=== PATIENT | male | born 1955 | race Caucasian/White ===

== ENCOUNTER → 2017-07-06 | Outpatient (REF) | payer MEDICARE, OTHER ==
[2017-07-07 00:30] LABS: INFLUENZA A AMPLIFICATION POSITIVE (NEGATIVE); INFLUENZA B AMPLIFICATION NEGATIVE (NEGATIVE); RSV AMPLIFICATION NEGATIVE (NEGATIVE)
== END ==
LOC: M LAB REF 22:46
DX: J11.1 Influenza due to unidentified influenza virus with other respiratory manifestations (principal)
CPT/HCPCS: 87631

== ENCOUNTER 2020-09-22 17:43 | Day surgery (SDC) | payer MEDICARE, OTHER ==
[~2020-09-22] VITALS: Ht 175.3 cm; Wt 131.4 kg
[~2020-09-22 17:43] MED LIST: ELIQ5TAB PO; EXTR500C4 PO; LYRI75CA PO; METO1TAB63 PO; METO50TA7 PO; METOPROLOL PO; PERC5TAB12 PO; QC A650T3 PO; TIKO500C PO; TYLE325T5 PO; VITA500C14 PO; VYTO10TA22 PO; ZETI10TA16 PO; ZOCO20TA PO
[2020-09-22] MEDS ORDERED: GLUCAGON INJ 1MG VIAL IV STA ×2 (19:05→20:00)
[2020-09-22] MEDS ORDERED: VYTO10TA22 PO (21:00)
[2020-09-22] MEDS ORDERED: ROCURONIUM BROMIDE 50 MG/5 ML VIAL As Ordered ONE (21:01)
[2020-09-22] MEDS ORDERED: propofoL 200 MG/20 ML VIAL As Ordered ONE (21:01)
[2020-09-22] MEDS ORDERED: LIDOCAINE 2% 100MG/5ML SDV (FOR ANES.) As Ordered ONE (21:01)
[2020-09-22] MEDS ORDERED: MIDAZOLAM INJ 2MG/2ML VIAL (J2250 PER 1MG) As Ordered ONE (21:02)
[2020-09-22] MEDS ORDERED: fentaNYL 100 MCG/2 ML INJECTION (J3010) As Ordered ONE (21:02)
[2020-09-22 21:41] LABS: RSV AMPLIFICATION NEGATIVE (NEGATIVE)
[2020-09-22] MEDS ORDERED: SUCCINYLCHOLINE 100 MG/5 ML SYRINGE (J0330) As Ordered ONE (22:52)
[2020-09-22 23:35] VITALS: BP 120/61
--- NOTE | 2020-09-23 08:07 | RO ---
OPERATIVE NOTE DATE OF OPERATION: 09/22/2020 PREOPERATIVE DIAGNOSIS: Esophageal food impaction. POSTOPERATIVE DIAGNOSIS: Esophageal food impaction with mild gastritis and mild distal esophagitis. PROCEDURE: EGD with removal of food bolus obstruction in the esophagus. SURGEON: Earle Yadav DO [employer] MACHINE OPERATOR: None. ANESTHESIA: General. EBL: None. COMPLICATIONS: None. INDICATIONS FOR PROCEDURE: The patient is a 64-year-old male who presents with steak stuck in his throat after this evening's meal. Recommendation was to proceed with EGD with removal of the food bolus. Risks and benefits of the procedure not limited to but including bleeding, infection, perforation of esophagus, damage to surrounding structures, need for further surgery was discussed in detail with The patient and informed consent was obtained to proceed with plan. DESCRIPTION OF PROCEDURE: The patient was brought back to operating room 3. After sufficient sedation he was placed in left lateral decubitus position. Time out was done to confirm proper patient, proper procedure. Following that the upper endoscope was passed through the oropharynx and down into the esophagus. In the distal esophagus there was a large chunk of steak identified. I was able to easily push this through the GE junction inside the stomach. Once that was completed I continued to pass the scope all the way through the pylorus into the duodenum. There was some irregularity of the wall of the duodenum. However, due to him being on blood thinners I held back from doing any biopsies at that time. The scope was then retracted back into the stomach. There was a little bit of mild irritation in the prepyloric area, no signs of any hiatal hernias. Scope was then brought back out into the esophagus; the Z-line was irregular with some mild distal esophagitis and some slight erythema in the area likely secondary to the food being stuck there. The scope was removed. The patient was awakened from anesthesia and sent to PACU in stable condition. RECOMMENDATION: Have him follow up with me in the office in two weeks. Plan for repeat upper scope once he is off blood thinners.
--- NOTE | 2020-09-23 09:23 | HPE ---
HISTORY AND PHYSICAL DATE: 09/22/2020 CHIEF COMPLAINT: Steak stuck in his esophagus. HISTORY OF PRESENT ILLNESS: Patient is a 64-year-old male that presented to the Emergency Room after getting steak stuck in his esophagus. He is having trouble swallowing. They tried a few doses of glucagon as well as some Poppy-Areli without any success and then they called me to take him to the operating room for removal. Patient denies ever having any problems swallowing in the past. No prior upper endoscopy. No problems with heartburn or reflux and no family history of upper GI problems. PAST MEDICAL HISTORY: Significant for: 1. Testicular cancer. 2. Lymphoma. 3. Afib. PAST SURGICAL HISTORY: 1. Inguinal hernia repair. 2. Orchiectomy. SOCIAL HISTORY: Denies drug, alcohol or tobacco abuse. FAMILY HISTORY: Noncontributory. ALLERGIES: Please see Med Rec. MEDICATIONS: Please see Med Rec. REVIEW OF SYSTEMS: Pertinent positives as per the HPI. PHYSICAL EXAMINATION: General: A&O times 3, in no acute distress. Vital signs stable, afebrile. HEENT: Pupils equally round and reactive to light and accommodation. Heart: S1 and S2 irregularly irregular rate and rhythm. Lungs: Clear to auscultation bilaterally. Abdomen: Soft, nontender, nondistended. Extremities: No clubbing, cyanosis or edema. LABORATORY DATA: Not obtained. IMAGING: Not obtained. ASSESSMENT AND PLAN: Patient is a 64-year-old male with esophageal food impaction. Recommendation was to proceed with urgent upper endoscopy with removal of food bolus. Risks and benefits of procedure not limited to, but including bleeding, infection, perforation of the esophagus, damage to surrounding structures, need for further surgery were discussed in detail with the patient. Informed consent was obtained and procedure was planned. Post-procedure he will likely be discharged home from the recovery room and will follow up with me in the office as an outpatient.
== END 2020-09-22 23:55 | disposition home or self-care (01) ==
LOC: M ED 17:43 → M SDC 17:44
PROVIDERS: ATTEND Surgery
DX: T18.128A Food in esophagus causing other injury, initial encounter (principal); X58.XXXA Exposure to other specified factors, initial encounter; K20.90 Esophagitis, unspecified without bleeding; K29.70 Gastritis, unspecified, without bleeding; K22.8 Other specified diseases of esophagus; I10 Essential (primary) hypertension; E78.5 Hyperlipidemia, unspecified; E66.9 Obesity, unspecified; Z68.41 Body mass index [BMI] 40.0-44.9, adult; C82.90 Follicular lymphoma, unspecified, unspecified site; I48.91 Unspecified atrial fibrillation; Z85.47 Personal history of malignant neoplasm of testis; Z88.1 Allergy status to other antibiotic agents; Z88.8 Allergy status to other drugs, medicaments and biological substances; Z79.899 Other long term (current) drug therapy; Z79.01 Long term (current) use of anticoagulants
CPT/HCPCS: 43247; 87631; 96374; 96376; 99283; J0330; J1610; J2250; J3010

== ENCOUNTER 2024-06-09 19:28 | Inpatient (IN) | payer MEDICARE, OTHER ==
[~2024-06-09 19:28] MED LIST changes: +DILT180C28 PO; +DOXY100T PO; +EZET-18 PO; +EZET10TA58 PO; +FURO40TA2 PO; +MECL-86 PO; +METO1TAB87 PO; +SIMV-253 PO; -TIKO500C PO; +TIKO500C2 PO; -VYTO10TA22 PO; -ZETI10TA16 PO; -ZOCO20TA PO
[2024-06-09 20:00] LABS: BASO # 0.1 10^3/uL (0.0-0.2); BASO % 0.6 % (0.0-1.0); EOS # 0.1 10^3/uL (0.0-0.5); EOS % 1.7 % (0.0-3.0); HEMATOCRIT 29.2 % (42.0-52.0); HEMOGLOBIN 9.7 g/dl (13.5-17.5); LYMPH # 1.5 10^3/uL (1.5-5.0); LYMPH % 18.6 % (24.0-44.0); MEAN CORPUSCULAR HEMOGLOBIN 31.3 pg (27.0-33.0); MEAN CORPUSCULAR HGB CONC 33.2 g/dl (32.0-36.5); MEAN CORPUSCULAR VOLUME 94.2 fl (80.0-96.0); MONO # 0.5 10^3/uL (0.0-0.8); MONO % 6.6 % (2.0-8.0); NEUTROPHILS # 5.9 10^3/uL (1.5-8.5); NEUTROPHILS % 72.1 % (36.0-66.0); PLATELET COUNT, AUTOMATED 213 10^3/uL (150-450); WHITE BLOOD COUNT 8.2 10^3/uL (4.0-10.0)
[2024-06-09 20:28] LABS: BILIRUBIN,DIRECT 0.5 MG/DL (<0.4); BILIRUBIN,TOTAL 0.8 MG/DL (0.3-1.2); CALCIUM LEVEL 7.9 MG/DL (8.3-10.6); CREATININE FOR GFR 1.67 MG/DL (0.70-1.30); GLOMERULAR FILTRATION RATE 43.8 (>49); MAGNESIUM LEVEL 1.6 MG/DL (1.8-2.4); PHOSPHORUS LEVEL 3.8 MG/DL (2.4-5.1); POTASSIUM SERUM 4.5 MMOL/L (3.5-5.1); TOTAL PROTEIN 4.6 G/DL (5.7-8.2)
[2024-06-09] MEDS ORDERED: ISOVUE-370 76% 100ML VIAL As Ordered ONE (20:31)
[2024-06-09] MEDS: NS (Normal Saline) 0.9% 1,000 ML in IV 1 EA IV ONE (20:40)
[2024-06-09] MEDS: PANTOPRAZOLE 40MG VIAL IV ONE (21:24)
[2024-06-09] MEDS: METOCLOPRAMIDE INJ 10MG/2ML VIAL IV ONE (21:24)
[2024-06-09] MEDS ORDERED: LevoFLOXacin IV 750 MG in IV 1 EA IV ONE (21:45)
[2024-06-09] MEDS: APIXABAN 5 MG TAB (ELIQUIS) PO ONE (22:47)
[2024-06-10] VITALS (56 sets, daily range): BP systolic 78–119; BP diastolic 39–72; TEMP 96.3–97.1; O2SAT 82–100
[2024-06-10 01:06] LABS: KETONE, URINE AUTO RFX NEGATIVE (NEGATIVE); LEUKOCYTE ESTERASE UR AUTO RFX NEGATIVE (NEGATIVE); NITRITE, URINE AUTO RFX NEGATIVE (NEGATIVE); RBC, URINE AUTO RFX 0 /HPF (0-3); SQUAM EPITHELIAL CELL UR AURFX 0 /HPF (0-6); WBC, URINE AUTO RFX 0 /HPF (0-3)
[2024-06-10] MEDS: MAG SULF 1GM/100ML (MAG RUN) 1 GM in IV 1 EA IV ONE (01:55)
[2024-06-10] MEDS: CALCIUM GLUCONATE 1,000 MG in DEXTROSE 5% (D5W) MINI-BAG PLU 100 ML IV ONE ×2 (02:55→12:19)
[2024-06-10] MEDS: LR 1,000 ML IV ONE (04:00)
[2024-06-10] MEDS ORDERED: ONDANSETRON 4MG 2ML VIAL IV PRN (04:00)
[2024-06-10] MEDS ORDERED: MOM 30ML SUSPENSION UDC PO PRN (04:00)
[2024-06-10] MEDS ORDERED: NORCO, ANEXSIA 5/325MG TABLET (HYDROcodone/ACETAMINOPHEN) PO PRN (04:00)
[2024-06-10 05:30] LABS: HEMATOCRIT 22.1 % (42.0-52.0); MEAN CORPUSCULAR HEMOGLOBIN 31.7 pg (27.0-33.0); MEAN CORPUSCULAR HGB CONC 32.1 g/dl (32.0-36.5); MEAN CORPUSCULAR VOLUME 98.7 fl (80.0-96.0); PLATELET COUNT, AUTOMATED 181 10^3/uL (150-450); RED BLOOD COUNT 2.24 10^6/uL (4.30-6.10); WHITE BLOOD COUNT 7.7 10^3/uL (4.0-10.0)
[2024-06-10] MEDS ORDERED: POTA1TAB23 PO (05:32)
[2024-06-10 05:33] LABS: HEMOGLOBIN 7.1 g/dl (13.5-17.5)
[2024-06-10] MEDS ORDERED: MULTCHW14 PO (05:34)
[2024-06-10] MEDS ORDERED: IRON65TA2 PO (05:34)
[2024-06-10] MEDS ORDERED: HOME MED LIST COMPLETE! XX SCH (05:35)
[2024-06-10] MEDS: NOREPINEPHRINE 4MG IN D5 250ML 4 MG in IV 1 EA IV SCH (05:50)
[2024-06-10 05:54] LABS: LDH LACTATE DEHYDROGENASE 230 U/L (120-246)
[2024-06-10] MEDS: MAG SULF 1GM/100ML (MAG RUN) 1 GM in IV 1 EA IV SCH (06:00)
[2024-06-10 06:19] LABS: ALBUMIN 1.6 G/DL (3.2-5.2); ALKALINE PHOSPHATASE 83 U/L (40-129); ALT/SGPT 11 U/L (7.0-40); AST/SGOT 20 U/L (<34); BILIRUBIN,TOTAL 0.5 MG/DL (0.3-1.2); BLOOD UREA NITROGEN 29 MG/DL (9-23); CA19-9 TUMOR MARKER,CARBOHYDRA 19.3 U/ML (<35.0); CALCIUM LEVEL 7.9 MG/DL (8.3-10.6); CARBON DIOXIDE LEVEL 28 MMOL/L (20-31); CARCINOEMBRYONIC ANTIGEN < 2.0 NG/ML (<2.5); CHLORIDE LEVEL 107 MMOL/L (98-107); CREATININE FOR GFR 1.58 MG/DL (0.70-1.30); GLOMERULAR FILTRATION RATE 46.7 (>49); GLUCOSE, FASTING 141 MG/DL (74-106); POTASSIUM SERUM 4.1 MMOL/L (3.5-5.1); SODIUM LEVEL 142 MMOL/L (136-145); TOTAL PROTEIN 3.9 G/DL (5.7-8.2)
[2024-06-10] MEDS: PANTOPRAZOLE 40MG VIAL IV SCH (07:39)
[2024-06-10] MEDS: FACTOR XA,INACTIVATED-ZHZO 400 MG in APPROPRIATE DILUENT 40 ML IV ONE (07:49)
[2024-06-10] MEDS: FACTOR XA,INACTIVATED-ZHZO 480 MG in APPROPRIATE DILUENT 48 ML IV ONE (08:30)
[2024-06-10 09:28] LABS: HEMATOCRIT 28.9 % (42.0-52.0); HEMOGLOBIN 9.6 g/dl (13.5-17.5); MEAN CORPUSCULAR HEMOGLOBIN 31.2 pg (27.0-33.0); MEAN CORPUSCULAR HGB CONC 33.2 g/dl (32.0-36.5); MEAN CORPUSCULAR VOLUME 93.8 fl (80.0-96.0); PLATELET COUNT, AUTOMATED 185 10^3/uL (150-450); RED BLOOD COUNT 3.08 10^6/uL (4.30-6.10)
[2024-06-10] MEDS ORDERED: SUCCINYLCHOLINE 100MG/5ML SYRINGE As Ordered ONE (09:42)
[2024-06-10] MEDS ORDERED: ETOMIDATE INJ 20MG/10ML VIAL As Ordered ONE (09:42)
[2024-06-10] MEDS ORDERED: PHENYLephrine 500MCG 5ML (100MCG/ML) SYRINGE As Ordered ONE (09:43)
[2024-06-10] MEDS ORDERED: MIDAZOLAM INJ 2MG/2ML VIAL As Ordered ONE (09:48)
[2024-06-10] MEDS: OCTREOTIDE ACETATE 100MCG/ML VIAL **IV ADMINISTRATION ONLY IV ONE (10:00)
[2024-06-10] MEDS: SUCRALFATE SUSP 1GM/10ML UD PO SCH (12:03)
[2024-06-10] MEDS: OCTREOTIDE ACETATE 1,200 MCG in NS 238.8 ML IV SCH (12:03)
[2024-06-10] MEDS: NS (Normal Saline) 0.9% 1,000 ML IV SCH (12:04)
[2024-06-10] MEDS: VASOPRESSIN IN 0.9 % NACL 20 UNIT in IV 1 EA IV SCH (12:08)
[2024-06-10] MEDS ORDERED: LIDOCAINE 1% MDV 20ML VIAL As Ordered ONE (13:56)
[2024-06-10 14:00] LABS: INR 1.33; PARTIAL THROMBOPLASTIN TIME 33.3 SECONDS (24.8-34.2); PROTHROMBIN TIME 16.7 SECONDS (12.5-14.5)
[2024-06-10 15:25] LABS: BASO % 0.3 % (0.0-1.0); EOS % 0.1 % (0.0-3.0); HEMATOCRIT 27.6 % (42.0-52.0); HEMOGLOBIN 9.2 g/dl (13.5-17.5); LYMPH # 1.3 10^3/uL (1.5-5.0); LYMPH % 8.8 % (24.0-44.0); MEAN CORPUSCULAR HGB CONC 33.3 g/dl (32.0-36.5); MEAN CORPUSCULAR VOLUME 92.9 fl (80.0-96.0); MONO # 1.2 10^3/uL (0.0-0.8); MONO % 8.1 % (2.0-8.0); NEUTROPHILS # 12.1 10^3/uL (1.5-8.5); NEUTROPHILS % 81.9 % (36.0-66.0); PLATELET COUNT, AUTOMATED 103 10^3/uL (150-450); RED BLOOD COUNT 2.97 10^6/uL (4.30-6.10); WHITE BLOOD COUNT 14.8 10^3/uL (4.0-10.0)
[2024-06-10 21:21] LABS: BASO # 0.1 10^3/uL (0.0-0.2); BASO % 0.4 % (0.0-1.0); EOS % 0.1 % (0.0-3.0); HEMATOCRIT 25.7 % (42.0-52.0); HEMOGLOBIN 8.7 g/dl (13.5-17.5); LYMPH # 1.8 10^3/uL (1.5-5.0); LYMPH % 10.8 % (24.0-44.0); MEAN CORPUSCULAR HEMOGLOBIN 31.3 pg (27.0-33.0); MEAN CORPUSCULAR HGB CONC 33.9 g/dl (32.0-36.5); MEAN CORPUSCULAR VOLUME 92.4 fl (80.0-96.0); MONO # 1.6 10^3/uL (0.0-0.8); MONO % 9.4 % (2.0-8.0); NEUTROPHILS # 13.1 10^3/uL (1.5-8.5); NEUTROPHILS % 78.5 % (36.0-66.0); RED BLOOD COUNT 2.78 10^6/uL (4.30-6.10); WHITE BLOOD COUNT 16.7 10^3/uL (4.0-10.0)
[2024-06-10 22:00] LABS: PLATELET COUNT, AUTOMATED 82 10^3/uL (150-450)
[2024-06-11] VITALS (92 sets, daily range): BP systolic 88–130; BP diastolic 36–72; TEMP 96.7–98.6; O2SAT 86–100
[2024-06-11 03:27] LABS: BASO # 0.1 10^3/uL (0.0-0.2); BASO % 0.6 % (0.0-1.0); EOS # 0.1 10^3/uL (0.0-0.5); EOS % 0.4 % (0.0-3.0); HEMOGLOBIN 8.1 g/dl (13.5-17.5); LYMPH # 2.2 10^3/uL (1.5-5.0); LYMPH % 16.6 % (24.0-44.0); MEAN CORPUSCULAR HEMOGLOBIN 31.3 pg (27.0-33.0); MEAN CORPUSCULAR HGB CONC 33.8 g/dl (32.0-36.5); MEAN CORPUSCULAR VOLUME 92.7 fl (80.0-96.0); MONO % 7.8 % (2.0-8.0); NEUTROPHILS # 9.6 10^3/uL (1.5-8.5); NEUTROPHILS % 73.9 % (36.0-66.0); RED BLOOD COUNT 2.59 10^6/uL (4.30-6.10)
[2024-06-11 03:43] LABS: PLATELET COUNT, AUTOMATED 86 10^3/uL (150-450)
[2024-06-11 04:04] LABS: ALBUMIN 1.6 G/DL (3.2-5.2); BILIRUBIN,TOTAL 0.5 MG/DL (0.3-1.2); CALCIUM LEVEL 7.8 MG/DL (8.3-10.6); CREATININE FOR GFR 2.04 MG/DL (0.70-1.30); GLOMERULAR FILTRATION RATE 34.7 (>49); POTASSIUM SERUM 4.2 MMOL/L (3.5-5.1); TOTAL PROTEIN 3.9 G/DL (5.7-8.2)
[2024-06-11 09:38] LABS: BASO # 0.1 10^3/uL (0.0-0.2); BASO % 0.6 % (0.0-1.0); EOS # 0.1 10^3/uL (0.0-0.5); EOS % 0.7 % (0.0-3.0); HEMOGLOBIN 7.7 g/dl (13.5-17.5); LYMPH # 1.9 10^3/uL (1.5-5.0); LYMPH % 16.5 % (24.0-44.0); MEAN CORPUSCULAR HGB CONC 33.5 g/dl (32.0-36.5); MEAN CORPUSCULAR VOLUME 92.7 fl (80.0-96.0); MONO % 8.9 % (2.0-8.0); NEUTROPHILS # 8.1 10^3/uL (1.5-8.5); NEUTROPHILS % 72.6 % (36.0-66.0); RED BLOOD COUNT 2.48 10^6/uL (4.30-6.10); WHITE BLOOD COUNT 11.2 10^3/uL (4.0-10.0)
[2024-06-11 09:51] LABS: PLATELET COUNT, AUTOMATED 84 10^3/uL (150-450)
[2024-06-11 18:05] LABS: HEMATOCRIT 24.3 % (42.0-52.0); HEMOGLOBIN 8.3 g/dl (13.5-17.5)
[2024-06-12] VITALS (95 sets, daily range): BP systolic 81–130; BP diastolic 41–70; TEMP 97.6–98.3; O2SAT 95–100
[2024-06-12 05:44] LABS: HEMATOCRIT 22.4 % (42.0-52.0); HEMOGLOBIN 7.5 g/dl (13.5-17.5)
[2024-06-12 06:29] LABS: ALBUMIN 1.5 G/DL (3.2-5.2); BILIRUBIN,TOTAL 0.6 MG/DL (0.3-1.2); CALCIUM LEVEL 7.3 MG/DL (8.3-10.6); CREATININE FOR GFR 1.71 MG/DL (0.70-1.30); GLOMERULAR FILTRATION RATE 42.6 (>49); POTASSIUM SERUM 3.7 MMOL/L (3.5-5.1); TOTAL PROTEIN 3.4 G/DL (5.7-8.2)
[2024-06-12 18:10] LABS: HEMATOCRIT 26.3 % (42.0-52.0); HEMOGLOBIN 8.9 g/dl (13.5-17.5)
[2024-06-13] VITALS (96 sets, daily range): BP systolic 78–121; BP diastolic 43–74; TEMP 97.2–98; O2SAT 89–100
[2024-06-13 05:35] LABS: HEMATOCRIT 25.4 % (42.0-52.0); HEMOGLOBIN 8.6 g/dl (13.5-17.5)
[2024-06-13 06:03] LABS: CALCIUM LEVEL 7.6 MG/DL (8.3-10.6); CREATININE FOR GFR 1.42 MG/DL (0.70-1.30); GLOMERULAR FILTRATION RATE 52.8 (>49); POTASSIUM SERUM 3.9 MMOL/L (3.5-5.1)
[2024-06-13] MEDS: LR 1,000 ML IV ONE ×2 (10:52→16:46)
[2024-06-13] MEDS: VASOPRESSIN IN 0.9 % NACL 20 UNIT in IV 1 EA IV SCH (13:01)
[2024-06-13] MEDS: LR 1,000 ML IV SCH (16:46)
[2024-06-13 16:47] LABS: BASO % 0.4 % (0.0-1.0); EOS # 0.2 10^3/uL (0.0-0.5); HEMATOCRIT 23.7 % (42.0-52.0); LYMPH # 0.7 10^3/uL (1.5-5.0); LYMPH % 12.6 % (24.0-44.0); MEAN CORPUSCULAR HEMOGLOBIN 30.2 pg (27.0-33.0); MEAN CORPUSCULAR HGB CONC 33.8 g/dl (32.0-36.5); MEAN CORPUSCULAR VOLUME 89.4 fl (80.0-96.0); MONO # 0.5 10^3/uL (0.0-0.8); MONO % 8.6 % (2.0-8.0); NEUTROPHILS % 73.7 % (36.0-66.0); RED BLOOD COUNT 2.65 10^6/uL (4.30-6.10); WHITE BLOOD COUNT 5.5 10^3/uL (4.0-10.0)
[2024-06-13 16:52] LABS: PLATELET COUNT, AUTOMATED 97 10^3/uL (150-450)
[2024-06-14] VITALS (77 sets, daily range): BP systolic 91–135; BP diastolic 48–75; TEMP 97–98.1; O2SAT 18–100
[2024-06-14 01:09] LABS: HEMATOCRIT 22.9 % (42.0-52.0); HEMOGLOBIN 7.6 g/dl (13.5-17.5)
[2024-06-14 02:18] LABS: MEAN CORPUSCULAR HEMOGLOBIN 30.8 pg (27.0-33.0); MEAN CORPUSCULAR HGB CONC 33.9 g/dl (32.0-36.5); MEAN CORPUSCULAR VOLUME 90.7 fl (80.0-96.0); RED BLOOD COUNT 2.47 10^6/uL (4.30-6.10); WHITE BLOOD COUNT 4.5 10^3/uL (4.0-10.0)
[2024-06-14 02:30] LABS: PLATELET COUNT, AUTOMATED 85 10^3/uL (150-450)
[2024-06-14 04:29] LABS: BASO % 0.5 % (0.0-1.0); EOS # 0.2 10^3/uL (0.0-0.5); EOS % 5.7 % (0.0-3.0); HEMATOCRIT 21.8 % (42.0-52.0); HEMOGLOBIN 7.4 g/dl (13.5-17.5); LYMPH # 0.7 10^3/uL (1.5-5.0); MEAN CORPUSCULAR HEMOGLOBIN 30.8 pg (27.0-33.0); MEAN CORPUSCULAR HGB CONC 33.9 g/dl (32.0-36.5); MEAN CORPUSCULAR VOLUME 90.8 fl (80.0-96.0); MONO # 0.4 10^3/uL (0.0-0.8); MONO % 10.4 % (2.0-8.0); NEUTROPHILS # 2.5 10^3/uL (1.5-8.5); NEUTROPHILS % 64.9 % (36.0-66.0); WHITE BLOOD COUNT 3.8 10^3/uL (4.0-10.0)
[2024-06-14 04:41] LABS: PLATELET COUNT, AUTOMATED 84 10^3/uL (150-450)
[2024-06-14 04:58] LABS: ALBUMIN 2.6 G/DL (3.2-5.2); ALKALINE PHOSPHATASE 70 U/L (40-129); ALT/SGPT 14 U/L (7.0-40); AST/SGOT 20 U/L (<34); BILIRUBIN,TOTAL 1.3 MG/DL (0.3-1.2); BLOOD UREA NITROGEN 17 MG/DL (9-23); CALCIUM LEVEL 7.9 MG/DL (8.3-10.6); CARBON DIOXIDE LEVEL 24 MMOL/L (20-31); CHLORIDE LEVEL 108 MMOL/L (98-107); CREATININE FOR GFR 1.25 MG/DL (0.70-1.30); GLOMERULAR FILTRATION RATE > 60.0 (>49); GLUCOSE, FASTING 93 MG/DL (74-106); MAGNESIUM LEVEL 1.7 MG/DL (1.8-2.4); POTASSIUM SERUM 3.9 MMOL/L (3.5-5.1); SODIUM LEVEL 138 MMOL/L (136-145); TOTAL PROTEIN 4.2 G/DL (5.7-8.2)
[2024-06-14] MEDS: ACETAMINOPHEN 325 MG TAB PO PRN (06:32)
[2024-06-14] MEDS: CALCIUM CHLORIDE 10% 1 GM/10 ML SYR IV STA (10:31)
[2024-06-14] MEDS: MAG SULF 1GM/100ML (MAG RUN) 1 GM in IV 1 EA IV ONE (10:31)
[2024-06-14 10:48] LABS: BASO % 0.7 % (0.0-1.0); EOS # 0.2 10^3/uL (0.0-0.5); EOS % 5.1 % (0.0-3.0); HEMATOCRIT 26.5 % (42.0-52.0); HEMOGLOBIN 8.7 g/dl (13.5-17.5); LYMPH # 0.4 10^3/uL (1.5-5.0); LYMPH % 10.1 % (24.0-44.0); MEAN CORPUSCULAR HEMOGLOBIN 30.2 pg (27.0-33.0); MEAN CORPUSCULAR HGB CONC 32.8 g/dl (32.0-36.5); MONO # 0.4 10^3/uL (0.0-0.8); MONO % 8.7 % (2.0-8.0); NEUTROPHILS # 3.1 10^3/uL (1.5-8.5); NEUTROPHILS % 74.9 % (36.0-66.0); RED BLOOD COUNT 2.88 10^6/uL (4.30-6.10); WHITE BLOOD COUNT 4.2 10^3/uL (4.0-10.0)
[2024-06-14 10:50] LABS: PLATELET COUNT, AUTOMATED 99 10^3/uL (150-450)
[2024-06-14 11:01] LABS: INR 1.33; PROTHROMBIN TIME 16.8 SECONDS (12.5-14.5)
== END 2024-06-14 19:25 | disposition short-term general hospital (02) | DRG 356 ==
LOC: EDBD 19:28 → M ED 19:28 → M ED INP 06-10 03:59 → M ICU 06-10 11:03
PROVIDERS: ADMIT Student in an Organized Health Care Education/Training Program; ATTEND Internal Medicine
PROC: 06HM33Z Insertion of Infusion Device into Right Femoral Vein, Percutaneous Approach (ICD-10-PCS; 2024-06-10)
PROC: 0W3P8ZZ Control Bleeding in Gastrointestinal Tract, Via Natural or Artificial Opening Endoscopic (ICD-10-PCS; 2024-06-10)
PROC: 30233N1 Transfusion of Nonautologous Red Blood Cells into Peripheral Vein, Percutaneous Approach (ICD-10-PCS; 2024-06-10)
PROC: 0WBF3ZX Excision of Abdominal Wall, Percutaneous Approach, Diagnostic (ICD-10-PCS; principal; 2024-06-10 08:30)
PROC: B246ZZZ Ultrasonography of Right and Left Heart (ICD-10-PCS; 2024-06-11)
PROC: 30233J1 Transfusion of Nonautologous Serum Albumin into Peripheral Vein, Percutaneous Approach (ICD-10-PCS; 2024-06-13)
DX: K28.4 Chronic or unspecified gastrojejunal ulcer with hemorrhage (principal); R57.8 Other shock; C78.7 Secondary malignant neoplasm of liver and intrahepatic bile duct; C79.11 Secondary malignant neoplasm of bladder; C79.89 Secondary malignant neoplasm of other specified sites; C83.33 Diffuse large B-cell lymphoma, intra-abdominal lymph nodes; N17.9 Acute kidney failure, unspecified; N13.1 Hydronephrosis with ureteral stricture, not elsewhere classified; I48.20 Chronic atrial fibrillation, unspecified; D62 Acute posthemorrhagic anemia; I95.9 Hypotension, unspecified; D63.0 Anemia in neoplastic disease; E83.51 Hypocalcemia; E83.42 Hypomagnesemia; Z79.01 Long term (current) use of anticoagulants; Z79.899 Other long term (current) drug therapy; Z88.1 Allergy status to other antibiotic agents; Z88.8 Allergy status to other drugs, medicaments and biological substances; Z98.84 Bariatric surgery status; Z85.47 Personal history of malignant neoplasm of testis

== ENCOUNTER → 2024-06-25 | Outpatient (CLI) | payer MEDICARE, OTHER ==
[~2024-06-25] MED LIST changes: +IRON65TA2 PO; +MULTCHW14 PO; +OMEP40CA5; +POTA1TAB23 PO; +SUCR1TAB56
== END ==
LOC: M CARPUL 12:57
PROVIDERS: ATTEND Internal Medicine Hematology & Oncology
DX: C82.90 Follicular lymphoma, unspecified, unspecified site (principal)

== ENCOUNTER → 2024-07-02 | Outpatient (CLI) | payer MEDICARE, OTHER | LOC: M PLARAD 09:39 | PROVIDERS: ATTEND Internal Medicine Hematology & Oncology | DX: C83.38 Diffuse large B-cell lymphoma, lymph nodes of multiple sites (principal) | CPT/HCPCS: 78815; A9552 ==

== ENCOUNTER → 2024-07-10 | Outpatient (CLI) | payer MEDICARE, OTHER ==
[~2024-07-10] MED LIST changes: +ALLO100T PO; +SODIUM CHLORIDE 0.9% INJ 10 ML SYR IV PRN
[2024-07-10 09:13] VITALS: TEMP 96.2
[2024-07-10] MEDS: MIDAZOLAM INJ 2MG/2ML VIAL IV PRN (10:36)
[2024-07-10] MEDS: fentaNYL 100 MCG/2 ML INJECTION IV PRN (10:36)
[2024-07-10] MEDS: NS (Normal Saline) 0.9% 1,000 ML IV SCH (10:37)
[2024-07-10] MEDS: VANCOMYCIN HCL 1,000 MG, VIAL MATE ADAPTER 1 EACH in NS 250 ML IV ONE (10:37)
[2024-07-10] MEDS: SODIUM CHLORIDE 0.9% INJ 10 ML SYR IV SCH (10:40)
[2024-07-10] MEDS: LIDOCAINE 1% MDV 20ML VIAL SC ONE (10:54)
[2024-07-10 11:35] VITALS: BP 87/53; O2SAT 100
== END ==
LOC: M IRPRO 09:11
PROVIDERS: ATTEND Internal Medicine Hematology & Oncology
DX: C82.90 Follicular lymphoma, unspecified, unspecified site (principal)
CPT/HCPCS: 36561; 99152; 99153; C1894; J1642; J2250; J3010; J3370

== ENCOUNTER → 2024-08-01 | Outpatient (CLI) | payer MEDICARE, OTHER ==
[~2024-08-01] MED LIST changes: +LIDO30CR18 TOP; +LIDOCAINE 1% MDV 20ML VIAL As Ordered ONE; +ONDA-84 PO; +PRED50TA PO; +PROC10TA5 PO; -SODIUM CHLORIDE 0.9% INJ 10 ML SYR IV PRN
[2024-08-01 13:00] VITALS: BP 92/49; TEMP 96.7; O2SAT 100
[2024-08-01 14:08] LABS: HEMATOCRIT 31.6 % (42.0-52.0); HEMOGLOBIN 10.8 g/dl (13.5-17.5); LYMPH # 0.3 10^3/uL (1.5-5.0); LYMPH % 3.2 % (24.0-44.0); MEAN CORPUSCULAR HEMOGLOBIN 31.6 pg (27.0-33.0); MEAN CORPUSCULAR HGB CONC 34.2 g/dl (32.0-36.5); MEAN CORPUSCULAR VOLUME 92.4 fl (80.0-96.0); MONO # 0.4 10^3/uL (0.0-0.8); MONO % 3.9 % (2.0-8.0); NEUTROPHILS % 92.4 % (36.0-66.0); PLATELET COUNT, AUTOMATED 129 10^3/uL (150-450); RED BLOOD COUNT 3.42 10^6/uL (4.30-6.10); WHITE BLOOD COUNT 10.8 10^3/uL (4.0-10.0)
== END ==
LOC: M IRPRO 12:54
PROVIDERS: ATTEND Internal Medicine Hematology & Oncology
DX: C82.90 Follicular lymphoma, unspecified, unspecified site (principal)

== ENCOUNTER 2024-08-14 16:51 | Inpatient (IN) | payer MEDICARE, OTHER ==
[2024-08-14] VITALS (12 sets, daily range): BP systolic 73–83; BP diastolic 44–50; TEMP 96.3–97.6; O2SAT 97–98
[~2024-08-14] VITALS: Ht 175.3 cm; Wt 98.2 kg
[~2024-08-14 16:51] MED LIST changes: -LIDOCAINE 1% MDV 20ML VIAL As Ordered ONE; -SUCR1TAB56; +SUCR1TAB56 PO
[2024-08-14] MEDS: NS (Normal Saline) 0.9% 1,000 ML IV ONE (17:30)
[2024-08-14 17:37] LABS: EOS % 1.1 % (0.0-3.0); HEMATOCRIT 24.7 % (42.0-52.0); HEMOGLOBIN 8.7 g/dl (13.5-17.5); LYMPH # 0.1 10^3/uL (1.5-5.0); LYMPH % 5.5 % (24.0-44.0); MEAN CORPUSCULAR HEMOGLOBIN 31.2 pg (27.0-33.0); MEAN CORPUSCULAR HGB CONC 35.2 g/dl (32.0-36.5); MEAN CORPUSCULAR VOLUME 88.5 fl (80.0-96.0); MONO # 0.1 10^3/uL (0.0-0.8); NEUTROPHILS % 68.1 % (36.0-66.0); RED BLOOD COUNT 2.79 10^6/uL (4.30-6.10)
[2024-08-14] MEDS: SODIUM CHLORIDE 0.9% INJ 10 ML SYR IV SCH (17:51)
[2024-08-14 18:03] LABS: ALBUMIN 1.3 G/DL (3.2-5.2); ALKALINE PHOSPHATASE 124 U/L (40-129); ALT/SGPT 14 U/L (7.0-40); AST/SGOT 11 U/L (<34); BILIRUBIN,DIRECT 0.8 MG/DL (<0.4); BLOOD UREA NITROGEN 29 MG/DL (9-23); CALCIUM LEVEL 7.3 MG/DL (8.3-10.6); CARBON DIOXIDE LEVEL 24 MMOL/L (20-31); CHLORIDE LEVEL 98 MMOL/L (98-107); CREATININE FOR GFR 1.51 MG/DL (0.70-1.30); GLOMERULAR FILTRATION RATE 49.2 (>49); GLUCOSE, FASTING 85 MG/DL (74-106); MAGNESIUM LEVEL 1.5 MG/DL (1.8-2.4); SODIUM LEVEL 129 MMOL/L (136-145); TOTAL PROTEIN 3.8 G/DL (5.7-8.2)
[2024-08-14 18:05] LABS: FREE T4 0.91 NG/DL (0.89-1.76); THYROID STIMULATING HORMONE 1.498 uIU/ML (0.55-4.78)
[2024-08-14 18:10] LABS: NEUTROPHILS # 0.6 10^3/uL (1.5-8.5); PLATELET COUNT, AUTOMATED 52 10^3/uL (150-450); WHITE BLOOD COUNT 0.9 10^3/uL (4.0-10.0)
[2024-08-14] MEDS: MAG SULF 1GM/100ML (MAG RUN) 1 GM in IV 1 EA IV ONE (18:24)
[2024-08-14] MEDS ORDERED: OMEP-173 PO (20:16)
[2024-08-14] MEDS ORDERED: VENTAER INH (20:17)
[2024-08-14] MEDS ORDERED: HOME MED LIST COMPLETE! XX SCH (20:20)
[2024-08-14] MEDS ORDERED: ALBUTEROL 90 MCG/ACT 8GM HFA INHALER INH PRN (21:20)
[2024-08-14] MEDS ORDERED: PROCHLORPERAZINE 5MG TAB PO PRN (21:20)
[2024-08-14 22:32] LABS: CK-MB VALUE MASS < 1.0 NG/ML (<3.6)
[2024-08-14 22:33] LABS: CPK CREATINE PHOSPHOKINASE < 15 U/L (46-171)
[2024-08-14] MEDS: MIDODRINE 5 MG TAB PO ONE (22:33)
[2024-08-14] MEDS: APIXABAN 5 MG TAB (ELIQUIS) PO SCH (22:58)
[2024-08-14] MEDS: OMEPRAZOLE 20MG CAP PO SCH (22:58)
[2024-08-14] MEDS: SUCRALFATE 1 GM TAB PO SCH (22:58)
[2024-08-15] VITALS (60 sets, daily range): BP systolic 73–120; BP diastolic 41–63; TEMP 96.4–97.9; O2SAT 73–100
[2024-08-15 06:38] LABS: BASO % 0.8 % (0.0-1.0); EOS % 0.8 % (0.0-3.0); HEMATOCRIT 21.2 % (42.0-52.0); HEMOGLOBIN 7.4 g/dl (13.5-17.5); LYMPH % 1.6 % (24.0-44.0); MEAN CORPUSCULAR HEMOGLOBIN 30.8 pg (27.0-33.0); MEAN CORPUSCULAR HGB CONC 34.9 g/dl (32.0-36.5); MEAN CORPUSCULAR VOLUME 88.3 fl (80.0-96.0); MONO # 0.1 10^3/uL (0.0-0.8); MONO % 7.9 % (2.0-8.0); NEUTROPHILS # 1.1 10^3/uL (1.5-8.5); NEUTROPHILS % 87.3 % (36.0-66.0); WHITE BLOOD COUNT 1.3 10^3/uL (4.0-10.0)
[2024-08-15 06:43] LABS: PLATELET COUNT, AUTOMATED 38 10^3/uL (150-450)
[2024-08-15 07:00] LABS: ALBUMIN 1.9 G/DL (3.2-5.2); BILIRUBIN,TOTAL 1.3 MG/DL (0.3-1.2); CALCIUM LEVEL 7.3 MG/DL (8.3-10.6); CREATININE FOR GFR 1.43 MG/DL (0.70-1.30); GLOMERULAR FILTRATION RATE 52.4 (>49); POTASSIUM SERUM 3.8 MMOL/L (3.5-5.1); TOTAL PROTEIN 3.7 G/DL (5.7-8.2)
[2024-08-15] MEDS ORDERED: VANCOMYCIN HCL 1,000 MG, VIAL MATE ADAPTER 1 EACH in NS 250 ML IV SCH (07:20)
[2024-08-15] MEDS: NS (Normal Saline) 0.9% 1,000 ML IV ONE (07:40)
[2024-08-15] MEDS: CEFEPIME HCL 2 GM in DEXTROSE 5% (D5W) ADV/MINI-BAG 50 ML IV SCH (07:40)
[2024-08-15] MEDS ORDERED: LevoFLOXacin IV 750 MG in IV 1 EA IV SCH (08:00)
[2024-08-15] MEDS ORDERED: [UNRECOGNIZED DRUG - OTHER] XX SCH (09:00)
[2024-08-15] MEDS ORDERED: VANCOMYCIN HCL 1,500 MG, VIAL MATE ADAPTER 1 EACH in NS 500 ML IV ONE (09:00)
[2024-08-15] MEDS: LR 1,000 ML IV ONE (10:20)
[2024-08-15] MEDS: NOREPINEPHRINE 4MG IN D5 250ML 4 MG in IV 1 EA IV SCH (10:21)
[2024-08-15] MEDS: LACTATED RINGER'S 1000 ML IV ONE (11:45)
[2024-08-15 13:59] LABS: CALCIUM LEVEL 7.2 MG/DL (8.3-10.6); CREATININE FOR GFR 1.36 MG/DL (0.70-1.30); GLOMERULAR FILTRATION RATE 55.5 (>49); POTASSIUM SERUM 3.7 MMOL/L (3.5-5.1)
[2024-08-15] MEDS: MIDODRINE 5 MG TAB PO SCH (17:57)
[2024-08-15] MEDS: cefTRIAXone SOD 2 GM in DEXTROSE 5% (D5W) ADV/MINI-BAG 50 ML IV SCH (19:30)
[2024-08-15] MEDS ORDERED: VANCOMYCIN HCL 750 MG, VIAL MATE ADAPTER 1 EACH in NS 250 ML IV SCH (21:00)
[2024-08-16] VITALS (69 sets, daily range): BP systolic 77–116; BP diastolic 45–67; TEMP 97–99; O2SAT 93–100
[2024-08-16 04:39] LABS: HEMATOCRIT 24.8 % (42.0-52.0); MEAN CORPUSCULAR HEMOGLOBIN 31.5 pg (27.0-33.0); MEAN CORPUSCULAR HGB CONC 36.3 g/dl (32.0-36.5); MEAN CORPUSCULAR VOLUME 86.7 fl (80.0-96.0); RED BLOOD COUNT 2.86 10^6/uL (4.30-6.10); WHITE BLOOD COUNT 4.6 10^3/uL (4.0-10.0)
[2024-08-16 04:41] LABS: PLATELET COUNT, AUTOMATED 34 10^3/uL (150-450)
[2024-08-16 05:10] LABS: ALBUMIN 1.7 G/DL (3.2-5.2); BILIRUBIN,TOTAL 1.4 MG/DL (0.3-1.2); CREATININE FOR GFR 1.37 MG/DL (0.70-1.30); POTASSIUM SERUM 3.4 MMOL/L (3.5-5.1); TOTAL PROTEIN 3.7 G/DL (5.7-8.2)
[2024-08-16] MEDS: KCL 20MEQ IN 100ML SWI (KRUN) 20 MEQ in IV 1 EA IV ONE (05:33)
[2024-08-16 05:35] LABS: MAGNESIUM LEVEL 1.5 MG/DL (1.8-2.4)
[2024-08-16] MEDS: MAG SULF 1GM/100ML (MAG RUN) 1 GM in IV 1 EA IV SCH (06:30)
[2024-08-16] MEDS: SUCRALFATE SUSP 1GM/10ML UD PO SCH (07:53)
[2024-08-16] MEDS: NS (Normal Saline) 0.9% 1,000 ML IV ONE (08:51)
[2024-08-16] MEDS: ONDANSETRON 4MG 2ML VIAL IV ONE (10:36)
[2024-08-16] MEDS: NS 500 ML IV ONE ×2 (13:52→17:15)
[2024-08-16] MEDS: ONDANSETRON 4MG 2ML VIAL IV SCH (16:14)
[2024-08-16] MEDS ORDERED: PROCHLORPERAZINE 5MG TAB PO PRN (20:00)
[2024-08-16] MEDS ORDERED: ONDANSETRON 4MG 2ML VIAL IV SCH (22:00)
[2024-08-17] VITALS (73 sets, daily range): BP systolic 77–113; BP diastolic 49–62; TEMP 96.7–98.3; O2SAT 95–100
[2024-08-17 05:48] LABS: HEMATOCRIT 24.6 % (42.0-52.0); HEMOGLOBIN 8.8 g/dl (13.5-17.5); MEAN CORPUSCULAR HEMOGLOBIN 31.1 pg (27.0-33.0); MEAN CORPUSCULAR HGB CONC 35.8 g/dl (32.0-36.5); MEAN CORPUSCULAR VOLUME 86.9 fl (80.0-96.0); RED BLOOD COUNT 2.83 10^6/uL (4.30-6.10); WHITE BLOOD COUNT 6.1 10^3/uL (4.0-10.0)
[2024-08-17 05:54] LABS: PLATELET COUNT, AUTOMATED 19 10^3/uL (150-450)
[2024-08-17 06:13] LABS: ALBUMIN 1.6 G/DL (3.2-5.2); ALKALINE PHOSPHATASE 97 U/L (40-129); ALT/SGPT 11 U/L (7.0-40); AST/SGOT < 8 U/L (<34); BILIRUBIN,TOTAL 1.4 MG/DL (0.3-1.2); BLOOD UREA NITROGEN 26 MG/DL (9-23); CALCIUM LEVEL 8.1 MG/DL (8.3-10.6); CARBON DIOXIDE LEVEL 22 MMOL/L (20-31); CHLORIDE LEVEL 101 MMOL/L (98-107); CREATININE FOR GFR 1.36 MG/DL (0.70-1.30); GLOMERULAR FILTRATION RATE 55.5 (>49); GLUCOSE, FASTING 117 MG/DL (74-106); POTASSIUM SERUM 3.4 MMOL/L (3.5-5.1); SODIUM LEVEL 130 MMOL/L (136-145); TOTAL PROTEIN 3.7 G/DL (5.7-8.2)
[2024-08-17] MEDS ORDERED: NS (Normal Saline) 0.9% 1,000 ML IV SCH (06:15)
[2024-08-17 06:47] LABS: MAGNESIUM LEVEL 2.1 MG/DL (1.8-2.4)
[2024-08-17] MEDS: NS 500 ML IV ONE (06:53)
[2024-08-17] MEDS: MECLIZINE 25 MG TABLET PO SCH (08:53)
[2024-08-17] MEDS: KCL 20MEQ IN 100ML SWI (KRUN) 20 MEQ in IV 1 EA IV ONE (08:53)
[2024-08-17] MEDS: PROCHLORPERAZINE 5MG TAB PO ONE (08:53)
[2024-08-17 11:36] LABS: PLATELET COUNT, AUTOMATED 16 10^3/uL (150-450)
[2024-08-17 11:48] LABS: D-DIMER QUANT 0.94 ug/mL (<0.5); INR 1.97; PARTIAL THROMBOPLASTIN TIME 54.5 SECONDS (24.8-34.2); PROTHROMBIN TIME 22.6 SECONDS (12.5-14.5)
[2024-08-17] MEDS: METOCLOPRAMIDE INJ 10MG/2ML VIAL IV ONE (14:25)
[2024-08-17] MEDS: AMIODARONE HCL 150 MG in IV 1 EA IV ONE (14:25)
[2024-08-17] MEDS: NS (Normal Saline) 0.9% 1,000 ML IV ONE (14:25)
[2024-08-17] MEDS: AMIODARONE HCL 360 MG in IV 1 EA IV SCH ×2 (14:39→20:18)
[2024-08-18] VITALS (29 sets, daily range): BP systolic 79–108; BP diastolic 48–61; TEMP 96.9–98; O2SAT 94–100
[2024-08-18 05:31] LABS: HEMATOCRIT 21.6 % (42.0-52.0); HEMOGLOBIN 7.7 g/dl (13.5-17.5); MEAN CORPUSCULAR HGB CONC 35.6 g/dl (32.0-36.5); MEAN CORPUSCULAR VOLUME 87.1 fl (80.0-96.0); RED BLOOD COUNT 2.48 10^6/uL (4.30-6.10); WHITE BLOOD COUNT 5.8 10^3/uL (4.0-10.0)
[2024-08-18 05:38] LABS: PLATELET COUNT, AUTOMATED 15 10^3/uL (150-450)
[2024-08-18 05:42] LABS: ALBUMIN 1.4 G/DL (3.2-5.2); ALKALINE PHOSPHATASE 86 U/L (40-129); ALT/SGPT 11 U/L (7.0-40); AST/SGOT < 8 U/L (<34); BILIRUBIN,TOTAL 1.5 MG/DL (0.3-1.2); BLOOD UREA NITROGEN 24 MG/DL (9-23); CALCIUM LEVEL 7.4 MG/DL (8.3-10.6); CARBON DIOXIDE LEVEL 23 MMOL/L (20-31); CHLORIDE LEVEL 102 MMOL/L (98-107); CREATININE FOR GFR 1.35 MG/DL (0.70-1.30); GLUCOSE, FASTING 86 MG/DL (74-106); MAGNESIUM LEVEL 2.1 MG/DL (1.8-2.4); POTASSIUM SERUM 3.4 MMOL/L (3.5-5.1); SODIUM LEVEL 134 MMOL/L (136-145); TOTAL PROTEIN 3.4 G/DL (5.7-8.2)
[2024-08-18] MEDS ORDERED: ONDANSETRON 4MG 2ML VIAL IV PRN (08:25)
[2024-08-18] MEDS: NS 500 ML IV ONE (08:28)
[2024-08-18] MEDS: AMIODARONE 200 MG TAB (PACERONE) PO SCH (09:29)
[2024-08-18] MEDS: KCL 20MEQ IN 100ML SWI (KRUN) 20 MEQ in IV 1 EA IV ONE (09:29)
[2024-08-18] MEDS: SCOPOLAMINE 1MG TRANSDERMAL PATCH TOP ONE (09:32)
[2024-08-18] MEDS: MECLIZINE 25 MG TABLET PO SCH (20:16)
[2024-08-19] VITALS (12 sets, daily range): BP systolic 83–108; BP diastolic 47–65; TEMP 96.8–98.1; O2SAT 93–99
[2024-08-19 04:54] LABS: HEMATOCRIT 21.7 % (42.0-52.0); HEMOGLOBIN 7.5 g/dl (13.5-17.5); MEAN CORPUSCULAR HEMOGLOBIN 30.4 pg (27.0-33.0); MEAN CORPUSCULAR HGB CONC 34.6 g/dl (32.0-36.5); MEAN CORPUSCULAR VOLUME 87.9 fl (80.0-96.0); RED BLOOD COUNT 2.47 10^6/uL (4.30-6.10); WHITE BLOOD COUNT 8.5 10^3/uL (4.0-10.0)
[2024-08-19 05:21] LABS: PLATELET COUNT, AUTOMATED 31 10^3/uL (150-450)
[2024-08-19 05:27] LABS: ALBUMIN 1.4 G/DL (3.2-5.2); BILIRUBIN,TOTAL 1.2 MG/DL (0.3-1.2); CALCIUM LEVEL 7.4 MG/DL (8.3-10.6); CREATININE FOR GFR 1.38 MG/DL (0.70-1.30); GLOMERULAR FILTRATION RATE 54.5 (>49); MAGNESIUM LEVEL 2.2 MG/DL (1.8-2.4); POTASSIUM SERUM 4.4 MMOL/L (3.5-5.1); TOTAL PROTEIN 3.6 G/DL (5.7-8.2)
[2024-08-19] MEDS: FERROUS SULFATE 325MG TAB PO SCH (09:02)
[2024-08-19] MEDS: PANTOPRAZOLE 40MG VIAL IV SCH (09:02)
[2024-08-19] MEDS: DIGOXIN 0.25 MG TAB PO SCH ×2 (10:28→18:15)
[2024-08-19] MEDS: AMIODARONE 200 MG TAB (PACERONE) PO ONE (10:28)
[2024-08-19 19:14] LABS: IRON (FE) 56 UG/DL (65-175); PERCENT SATURATION 38.1 % (19.7-50.0); TOTAL IRON BINDING CAPACITY 147 UG/DL (250-425)
[2024-08-19 19:22] LABS: FERRITIN 896.4 NG/ML (10.5-307.3)
[2024-08-19 19:24] LABS: VITAMIN B12 LEVEL > 2000 PG/ML (211-911)
[2024-08-19] MEDS: ONDANSETRON 4MG 2ML VIAL IV PRN (19:50)
[2024-08-19] MEDS: AMIODARONE 200 MG TAB (PACERONE) PO SCH (20:28)
[2024-08-20] VITALS (10 sets, daily range): BP systolic 88–104; BP diastolic 52–62; TEMP 96.5–97.8; O2SAT 94–97
[2024-08-20] MEDS: ACETAMINOPHEN 325 MG TAB PO PRN (02:20)
[2024-08-20 06:06] LABS: HEMATOCRIT 21.9 % (42.0-52.0); HEMOGLOBIN 7.7 g/dl (13.5-17.5); MEAN CORPUSCULAR HEMOGLOBIN 31.2 pg (27.0-33.0); MEAN CORPUSCULAR HGB CONC 35.2 g/dl (32.0-36.5); MEAN CORPUSCULAR VOLUME 88.7 fl (80.0-96.0); RED BLOOD COUNT 2.47 10^6/uL (4.30-6.10); WHITE BLOOD COUNT 10.3 10^3/uL (4.0-10.0)
[2024-08-20 06:14] LABS: PLATELET COUNT, AUTOMATED 58 10^3/uL (150-450)
[2024-08-20 06:33] LABS: ALBUMIN 1.5 G/DL (3.2-5.2); BILIRUBIN,TOTAL 0.8 MG/DL (0.3-1.2); CALCIUM LEVEL 7.7 MG/DL (8.3-10.6); CREATININE FOR GFR 1.47 MG/DL (0.70-1.30); DIGOXIN LEVEL 2.5 NG/ML (0.8-2.0); GLOMERULAR FILTRATION RATE 50.7 (>49); MAGNESIUM LEVEL 2.2 MG/DL (1.8-2.4); POTASSIUM SERUM 3.8 MMOL/L (3.5-5.1); TOTAL PROTEIN 3.6 G/DL (5.7-8.2)
[2024-08-21] VITALS (48 sets, daily range): BP systolic 72–149; BP diastolic 39–63; TEMP 96.7–97.5; O2SAT 89–97
[2024-08-21] MEDS ORDERED: SODIUM CHLORIDE 0.9% 1000 ML IV ONE (04:50)
[2024-08-21 05:10] LABS: HEMATOCRIT 24.7 % (42.0-52.0); HEMOGLOBIN 8.7 g/dl (13.5-17.5); MEAN CORPUSCULAR HEMOGLOBIN 30.9 pg (27.0-33.0); MEAN CORPUSCULAR HGB CONC 35.2 g/dl (32.0-36.5); MEAN CORPUSCULAR VOLUME 87.6 fl (80.0-96.0); RED BLOOD COUNT 2.82 10^6/uL (4.30-6.10); WHITE BLOOD COUNT 12.9 10^3/uL (4.0-10.0)
[2024-08-21 05:11] LABS: PLATELET COUNT, AUTOMATED 85 10^3/uL (150-450)
[2024-08-21] MEDS: SODIUM CHLORIDE 0.9% 250ML IV ONE (05:16)
[2024-08-21 05:50] LABS: ALBUMIN 1.6 G/DL (3.2-5.2); BILIRUBIN,TOTAL 0.8 MG/DL (0.3-1.2); CALCIUM LEVEL 7.7 MG/DL (8.3-10.6); CREATININE FOR GFR 1.5 MG/DL (0.70-1.30); GLOMERULAR FILTRATION RATE 49.5 (>49); MAGNESIUM LEVEL 2.1 MG/DL (1.8-2.4); TOTAL PROTEIN 3.8 G/DL (5.7-8.2)
[2024-08-21] MEDS: SCOPOLAMINE 1MG TRANSDERMAL PATCH TOP SCH (08:15)
[2024-08-21] MEDS: NS (Normal Saline) 0.9% 1,000 ML IV ONE (08:36)
[2024-08-21] MEDS ORDERED: DIGOXIN 0.125 MG TAB PO SCH (09:00)
[2024-08-21] MEDS: DIGOXIN 0.125 MG TAB PO SCH (11:55)
[2024-08-21] MEDS: NS 500 ML IV ONE (12:31)
[2024-08-21 16:52] LABS: KETONE, URINE AUTO RFX NEGATIVE (NEGATIVE); LEUKOCYTE ESTERASE UR AUTO RFX NEGATIVE (NEGATIVE); MUCUS, URINE RFX SMALL (NEGATIVE); NITRITE, URINE AUTO RFX NEGATIVE (NEGATIVE); RBC, URINE AUTO RFX TNTC /HPF (0-3); SQUAM EPITHELIAL CELL UR AURFX 1 /HPF (0-6); WBC, URINE AUTO RFX 4 /HPF (0-3)
[2024-08-22] VITALS (21 sets, daily range): BP systolic 78–108; BP diastolic 46–58; TEMP 96.1–97; O2SAT 94–100
[2024-08-22 04:54] LABS: HEMOGLOBIN 7.2 g/dl (13.5-17.5); MEAN CORPUSCULAR HEMOGLOBIN 30.6 pg (27.0-33.0); MEAN CORPUSCULAR HGB CONC 34.6 g/dl (32.0-36.5); MEAN CORPUSCULAR VOLUME 88.5 fl (80.0-96.0); RED BLOOD COUNT 2.35 10^6/uL (4.30-6.10); WHITE BLOOD COUNT 19.4 10^3/uL (4.0-10.0)
[2024-08-22 05:09] LABS: HEMATOCRIT 20.8 % (42.0-52.0)
[2024-08-22 05:10] LABS: PLATELET COUNT, AUTOMATED 88 10^3/uL (150-450)
[2024-08-22 05:17] LABS: ALBUMIN 1.7 G/DL (3.2-5.2); BILIRUBIN,TOTAL 0.7 MG/DL (0.3-1.2); CALCIUM LEVEL 7.7 MG/DL (8.3-10.6); CREATININE FOR GFR 1.45 MG/DL (0.70-1.30); DIGOXIN LEVEL 1.6 NG/ML (0.8-2.0); GLOMERULAR FILTRATION RATE 51.5 (>49); MAGNESIUM LEVEL 2.2 MG/DL (1.8-2.4); POTASSIUM SERUM 4.1 MMOL/L (3.5-5.1); TOTAL PROTEIN 3.8 G/DL (5.7-8.2)
[2024-08-22 07:02] LABS: CORTISOL AM 47.8 UG/DL (4.3-22.4)
[2024-08-22] MEDS: DIGOXIN 0.125 MG TAB PO SCH (09:00)
[2024-08-22] MEDS: ACETAMINOPHEN *IV* 1,000 MG in IV 1 EA IV ONE (10:22)
[2024-08-22] MEDS: MIDODRINE 5 MG TAB PO SCH (11:47)
[2024-08-22] MEDS: METOCLOPRAMIDE INJ 10MG/2ML VIAL IV ONE (12:45)
[2024-08-22] MEDS: METOCLOPRAMIDE INJ 10MG/2ML VIAL IV SCH (17:36)
[2024-08-22] MEDS ORDERED: HYOSCYAMINE SULFATE 0.125 MG SUBL TABLET PO PRN (18:05)
[2024-08-22] MEDS: BISACODYL 10MG SUPP PR PRN (18:39)
[2024-08-23] MEDS ORDERED: METOCLOPRAMIDE INJ 10MG/2ML VIAL IV PRN (07:00)
[2024-08-23] MEDS: MIDODRINE 5 MG TAB PO SCH (08:00)
[2024-08-25] MEDS: LORazepam 1 MG TAB PO PRN (11:54)
[2024-08-26] MEDS: MORPHINE 10MG/0.5ML ORAL CONCENTRATE SOLUTION U/D SL PRN ×2 (03:42→22:18)
[2024-08-26] MEDS ORDERED: ONDANSETRON 4MG ORAL DISINTEGRATING TAB SL PRN (10:10)
[2024-08-26] MEDS: LORazepam 1 MG TAB PO SCH (14:00)
[2024-08-27] MEDS: SODIUM CHLORIDE 0.9% INJ 10 ML SYR IV SCH (13:22)
[2024-08-27] MEDS: MORPHINE 10MG/0.5ML ORAL CONCENTRATE SOLUTION U/D SL SCH (13:22)
[2024-08-28] MEDS ORDERED: MORP1SOL5 PO (15:00)
[2024-08-28] MEDS ORDERED: HYOS125TA PO (15:00)
[2024-08-28] MEDS ORDERED: ATIV1TAB10 PO (15:00)
== END 2024-08-29 11:45 | disposition hospice, home (50) | DRG 871 ==
LOC: EDBD 16:51 → M ED 16:51 → M ED INP 16:52 → UNDOADMOB 21:18 → M ED INP 21:18 → M PCU 08-15 04:06 → M ICU 08-15 09:07 → OBSVTOIN 08-15 10:06 → M MS5PR 08-23 18:38
PROVIDERS: ADMIT Student in an Organized Health Care Education/Training Program; ATTEND Internal Medicine
PROC: 05H733Z Insertion of Infusion Device into Right Axillary Vein, Percutaneous Approach (ICD-10-PCS; principal; 2024-08-15)
PROC: B246ZZZ Ultrasonography of Right and Left Heart (ICD-10-PCS; 2024-08-16)
PROC: 30233J1 Transfusion of Nonautologous Serum Albumin into Peripheral Vein, Percutaneous Approach (ICD-10-PCS; 2024-08-21)
DX: A40.9 Streptococcal sepsis, unspecified (principal); D61.810 Antineoplastic chemotherapy induced pancytopenia; R65.21 Severe sepsis with septic shock; E43 Unspecified severe protein-calorie malnutrition; D65 Disseminated intravascular coagulation [defibrination syndrome]; C83.33 Diffuse large B-cell lymphoma, intra-abdominal lymph nodes; I48.21 Permanent atrial fibrillation; E87.1 Hypo-osmolality and hyponatremia; K52.1 Toxic gastroenteritis and colitis; C78.7 Secondary malignant neoplasm of liver and intrahepatic bile duct; K56.7 Ileus, unspecified; G62.81 Critical illness polyneuropathy; L98.498 Non-pressure chronic ulcer of skin of other sites with other specified severity; E78.5 Hyperlipidemia, unspecified; I95.89 Other hypotension; I10 Essential (primary) hypertension; E88.09 Other disorders of plasma-protein metabolism, not elsewhere classified; Z51.5 Encounter for palliative care; Z66 Do not resuscitate; T45.1X5A Adverse effect of antineoplastic and immunosuppressive drugs, initial encounter; N18.30 Chronic kidney disease, stage 3 unspecified; D70.9 Neutropenia, unspecified; E86.0 Dehydration; R31.9 Hematuria, unspecified; I12.9 Hypertensive chronic kidney disease with stage 1 through stage 4 chronic kidney disease, or unspecified chronic kidney disease; R11.10 Vomiting, unspecified; S41.111A Laceration without foreign body of right upper arm, initial encounter; S41.112A Laceration without foreign body of left upper arm, initial encounter; D50.9 Iron deficiency anemia, unspecified; W19.XXXA Unspecified fall, initial encounter; Z79.899 Other long term (current) drug therapy; Z96.651 Presence of right artificial knee joint; Y92.9 Unspecified place or not applicable; Z79.01 Long term (current) use of anticoagulants; Z95.0 Presence of cardiac pacemaker; Y93.9 Activity, unspecified; Y99.8 Other external cause status; Z98.84 Bariatric surgery status; Z88.1 Allergy status to other antibiotic agents; Z88.8 Allergy status to other drugs, medicaments and biological substances